=== PATIENT | male | born 1990 | race Caucasian/White ===

== ENCOUNTER 2021-06-17 10:45 | Emergency (ER) | payer OTHER ==
[2021-06-17 12:47] LABS: BASOPHIL 0.1 % (0-2); EOSINOPHIL 1.3 % (0-5); HCT 41.6 % (42.0-52.0); HGB 13.7 g/dl (13.2-18.0); LYMPHOCYTE 19.9 % (15-48); MCHC 32.9 g/dL (32.0-36.0); MCV 94.1 fL (78.0-100.0); MONOCYTE 10.8 % (0-12); NEUTROPHIL 67.5 % (41-80); NRBC 0; PLT 217 K/uL (150-400); RBC 4.42 M/uL (4.70-6.00); RDW 14.1 % (11.5-14.0); WBC 7.6 K/uL (4.0-10.5)
[2021-06-17 13:06] LABS: BUN/CREAT RATIO (CALC) 15.8 RATIO; CREATININE 0.76 mg/dL (0.67-1.17)
== END 2021-06-17 15:25 | disposition home or self-care (01) ==
LOC: FER 10:45
PROVIDERS: Nurse Practitioner Family
DX: M79.661 Pain in right lower leg (principal); M79.662 Pain in left lower leg; R60.0 Localized edema; I10 Essential (primary) hypertension; Z79.899 Other long term (current) drug therapy
CPT/HCPCS: 36415; 80048; 83880; 85025; 85379; 93970